=== PATIENT | male | born 1995 | race Caucasian/White ===

== ENCOUNTER 2018-01-23 22:32 | Emergency (ER) | payer OTHER, BC ==
[~2018-01-23] VITALS: Ht 172.7 cm; Wt 70.3 kg
[2018-01-25 06:05] LABS: HCV Non Reactive (NR)
== END 2018-01-23 23:29 | disposition home or self-care (01) ==
LOC: ER 22:32
PROVIDERS: Emergency Medicine
DX: Z77.21 Contact with and (suspected) exposure to potentially hazardous body fluids (principal)
CPT/HCPCS: 84460; 86706; 86803; 87389; 99283

== ENCOUNTER 2020-10-09 09:12 | Emergency (ER) | payer OTHER ==
[~2020-10-09] VITALS: Ht 172.7 cm; Wt 72.6 kg
[2020-10-10 09:09] LABS: HCV ANTIBODY <0.1 (0.0-0.9); HIV SCREEN 4TH GENERATION WRFX Non Reactive (Non Reactive)
== END 2020-10-09 09:45 | disposition home or self-care (01) ==
LOC: ER 09:12
PROVIDERS: Physician Assistant
DX: S61.031A Puncture wound without foreign body of right thumb without damage to nail, initial encounter (principal); W46.1XXA Contact with contaminated hypodermic needle, initial encounter
CPT/HCPCS: 36415; 84460; 86317; 86803; 87389; 99283